=== PATIENT | male | born 2000 | race Caucasian/White ===

== ENCOUNTER 2023-06-18 13:36 | Emergency (ER) | payer MEDICAID ==
[~2023-06-18] VITALS: Ht 180.3 cm; Wt 68.0 kg
[2023-06-18 13:53] VITALS: TEMP 98.8
[2023-06-18] MEDS ORDERED: PERTUSS(ACELL),DIPH,TET VAC/PF 0.5 ML SYRINGE IM. ONE (14:00)
[2023-06-18] MEDS ORDERED: AMOX TR/POT CLAV 875 MG/125 MG TABLET PO ONE (14:00)
[2023-06-18] MEDS ORDERED: IBUPROFEN 600 MG TABLET PO ONE (14:00)
[2023-06-18] MEDS ORDERED: AMOX1TAB16 PO (14:49)
[2023-06-18 15:00] VITALS: BP 121/75; PULSE 80; RESP 18
== END 2023-06-18 15:31 | disposition home or self-care (01) ==
LOC: EMS 13:41
DX: S01.551A Open bite of lip, initial encounter (principal); W54.0XXA Bitten by dog, initial encounter; Y93.89 Activity, other specified; Y92.89 Other specified places as the place of occurrence of the external cause; Y99.8 Other external cause status
CPT/HCPCS: 90471; 90715; 99283